=== PATIENT | female | born 1960 | race Caucasian/White ===

== ENCOUNTER 2019-06-21 09:22 | Day surgery (SDC) | payer OTHER ==
[~2019-06-21] VITALS: Ht 167.6 cm; Wt 84.0 kg
[~2019-06-21 09:22] MED LIST: ADVIL LIQUI-GE200 MG PO; GABA100 PO; LOSA25 PO; Pravachol80 MG PO; VITAMIN D350000 UNIT PO
--- NOTE | 2019-06-21 10:24 | NUR ---
06/21/19 4552 Kalli Ramírez fIRST IV ATTEMPT R HAND UNSUCCESSFUL SECOND IV ATTEMPT R HAND UNSUCCESSFUL THIRD IV ATTEMPT R WRIST SUCCESSFUL
--- NOTE | 2019-06-21 11:53 | NUR ---
06/21/19 1153 Silvia Ivey PT. VERBALIZES HAVING A "REALLY SORE THROAT." PT. INSTRUCTED THAT SHE MAY HAVE A SORE THROAT FOR UP TO A COUPLE OF DAYS & IF BOTHERSOME TO EAT SOFT FOODS, OTHERWISE EAT & DRINK WHAT SHE WANTED. PT. EATING ICE CHIPS IN WHICH SHE VERBALIZED MAKING HER THROAT FEEL BETTER.
== END 2019-06-21 11:30 | disposition home or self-care (01) ==
LOC: ORSCSDS 09:22
DX: K21.9 Gastro-esophageal reflux disease without esophagitis (principal); K44.9 Diaphragmatic hernia without obstruction or gangrene; K22.2 Esophageal obstruction; I10 Essential (primary) hypertension; Z79.899 Other long term (current) drug therapy
CPT/HCPCS: 88305; 88342; J2704; J7120